=== PATIENT | female | born 1975 | race Caucasian/White ===

== ENCOUNTER 2022-01-05 08:14 | Emergency (ER) | payer OTHER, SELFPAY ==
[2022-01-05 08:20] VITALS: BP 105/60; PULSE 83; RESP 20; TEMP 37; O2SAT 99
--- NOTE | 2022-01-05 08:54 | ED.FEMALEGU ---
HPI - Female Genitourinary General Chief complaint: Urogenital-Female Stated complaint: Urinary Problem Time Seen by Provider: 01/05/22 08:54 Source: patient, RN notes reviewed and old records reviewed Mode of arrival: ambulatory Limitations: no limitations History of Present Illness HPI Narrative: 46-year-old female who presents to [facility] with 3 days symptoms of lower abdominal pressure, lower back pain with some urinary urgency. Patient denies any fevers any nausea vomiting denies any concern for STDs. Patient states she has had a little bit of a white vaginal discharge but denies any itching, Patient does have a history of kidney stones and also urinary tract infection. Patient reports symptoms similar to past episodes of UTI. MD elicited complaint: UTI Pertinent past history: tubal ligation and other (uti) Onset (ago): day(s) (3) Severity scale (1-10): 5 Treatment prior to arrival: NSAIDs Related Data Home Medications Medication Instructions Recorded Confirmed dexlansoprazole 60 mg 60 mg PO DAILY 01/05/22 01/05/22 capsule,biphase delayed release (Dexilant) ezetimibe 10 mg tablet 10 mg PO DAILY 01/05/22 01/05/22 hydrochlorothiazide 25 mg tablet 25 mg PO DAILY 01/05/22 01/05/22 lisinopril 20 mg tablet 20 mg PO DAILY 01/05/22 01/05/22 phentermine 37.5 mg tablet 37.5 mg PO DAILY 01/05/22 01/05/22 plecanatide 3 mg tablet (Trulance) 3 mg PO DAILY 01/05/22 01/05/22 Allergies Allergy/AdvReac Type Severity Reaction Status Date / Time No Known Allergies Allergy Unknown Verified 01/05/22 08:46 Review of Systems Review of Systems: CONSTITUTIONAL: Denies fever, chills, or sweats. CARDIOVASCULAR: Denies chest pain, palpitations, or edema. RESPIRATORY: Denies cough or dyspnea. GASTROINTESTINAL: Reports suprapubic abdominal pressure,perineal pressure, no nausea, vomiting, or diarrhea. GENITOURINARY: Reports dysuria, urgency. Denies flank pain or hematuria. SKIN: Denies rash or itching. MUSCULOSKELETAL: Reports lower back pain or myalgia. Denies CVA tenderness NEUROLOGIC: Denies headache All systems reviewed & are unremarkable except as noted in HPI and below PMFSH Past Medical History Medical History (Updated 01/11/22 @ 10:04 by Linda Bernstein NP) Elevated cholesterol GERD (gastroesophageal reflux disease) Hypertension Kidney stone UTI (urinary tract infection) Surgical History Surgical History (Updated 01/11/22 @ 10:09 by Linda Bernstein NP) H/O ovarian cystectomy H/O tubal ligation History of appendectomy History of endometrial ablation History of surgery on arm ORIF fracture as child Social History Social History (Updated 01/11/22 @ 10:09 by Linda Bernstein NP) Smoking status: Never smoker Alcohol intake: current Alcohol use details: social Living arrangements: with family Gender identity (if verbalized by the patient): Female Comments At time of signature, agree with nursing past medical, surgical, social and family history. There is no relevant family history pertinent to the presenting complaint Exam Narrative: GENERAL: Well-appearing, well-nourished, and in no acute distress. HEAD: Normocephalic, atraumatic. NECK: Supple.no lymphadenopathy CHEST: Clear to auscultation. No respiratory distress. SaO2 99 room air HEART: Regular rate and rhythm. No murmur heard. Normal peripheral pulses. ABDOMEN: Soft, nontender to palpation, nondistended, normal active bowel sounds. No CVA tenderness reports perineal pressure and lower back pain EXTREMITIES: Normal range of motion. No edema. SKIN: Warm, dry, no rash. NEURO: No focal deficits. Alert and oriented x3. Course Course Emergency Course: Patient is aware of diagnosis, understands and agrees to treatment plan.? Anticipatory guidance given.? Patient agrees to follow-up as directed and is aware of reasons to seek care at the emergency department. Portions of this record may have been created with voice recognition soft
== END 2022-01-05 09:10 | disposition home or self-care (01) ==
PROVIDERS: Emergency Provider Registered Nurse; PCP Physician Assistant
DX: N39.0 Urinary tract infection, site not specified (principal); E78.00 Pure hypercholesterolemia, unspecified; I10 Essential (primary) hypertension; K21.9 Gastro-esophageal reflux disease without esophagitis; Z86.16 Personal history of COVID-19
CPT/HCPCS: 81003; 87086; 87088; 99203; G0463

== ENCOUNTER 2022-02-09 08:28 | Emergency (ER) | payer OTHER, SELFPAY ==
--- NOTE | 2022-02-09 08:33 | ED.URI ---
HPI - URI/Sore Throat General Chief Complaint: Upper Respiratory Infection Stated Complaint: sore throat cough ears Time Seen by Provider: 02/09/22 08:33 Source: patient and RN notes reviewed History of Present Illness HPI Narrative: patient is a 46-year-old female who presents to urgent care with complaints of sore throat, cough, bilateral ear pain. Patient states that it started on and she has had exposure to influenza and possibly strep. 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 Patient has been using NyQuil and Robitussin. Denies any known fevers, nausea or vomiting. No other acute complaints. No acute distress noted. Patient aware of the plan of care. Some parts of this dictation were generated by voice recognition software and may contain typographical and/or grammatical inaccuracies. Related Data Home Medications Medication Instructions Recorded Confirmed dexlansoprazole 60 mg 60 mg PO DAILY 01/05/22 01/05/22 capsule,biphase delayed release (Dexilant) ezetimibe 10 mg tablet 10 mg PO DAILY 01/05/22 01/05/22 hydrochlorothiazide 25 mg tablet 25 mg PO DAILY 01/05/22 01/05/22 lisinopril 20 mg tablet 20 mg PO DAILY 01/05/22 01/05/22 phentermine 37.5 mg tablet 37.5 mg PO DAILY 01/05/22 01/05/22 plecanatide 3 mg tablet (Trulance) 3 mg PO DAILY 01/05/22 01/05/22 Allergies Allergy/AdvReac Type Severity Reaction Status Date / Time No Known Allergies Allergy Unknown Verified 02/09/22 08:42 Review of Systems Review of Systems: CONSTITUTIONAL: Denies fever, chills, or sweats. EYES: Denies visual changes, redness, or discharge. ENT: Denies rhinorrhea, congestion, sore throat, or otalgia. CARDIOVASCULAR: Denies chest pain, palpitations, or edema. RESPIRATORY: Denies cough or dyspnea. GASTROINTESTINAL: Denies abdominal pain, nausea, vomiting, or diarrhea. GENITOURINARY: Denies dysuria or hematuria. SKIN: Denies rash or itching. MUSCULOSKELETAL: Denies back pain, joint pain, or myalgia. NEUROLOGIC: Denies headache, numbness, or weakness. PSYCHIATRIC: Denies anxiety or depression. All other systems reviewed are negative, except as documented in HPI. [facility] Past Medical History Medical History (Updated 02/09/22 @ 08:59 by VALENTIN Amado) Elevated cholesterol GERD (gastroesophageal reflux disease) Hypertension Kidney stone UTI (urinary tract infection) Surgical History Surgical History (Updated 01/11/22 @ 10:09 by Linda Bernstein NP) H/O ovarian cystectomy H/O tubal ligation History of appendectomy History of endometrial ablation History of surgery on arm ORIF fracture as child Social History Social History (Updated 01/11/22 @ 10:09 by Linda Bernstein NP) Smoking status: Never smoker Alcohol intake: current Alcohol use details: social Gender identity (if verbalized by the patient): Female Comments At the time of my signature, I reviewed and agree with the nursing past medical, surgical, social, and family history. There is no relevant family history pertinent to the patient complaint. Exam Narrative: GENERAL: This is a well-nourished, well-developed patient, appears fatigued HEAD: normocephalic, atraumatic. EYES: PERRL. Sclera clear/white. Vision is grossly intact. EARS: External ears normal, auditory canals clear and without drainage, TMs normal without perforation. Hearing grossly intact. NOSE: External nose normal with no obvious nasal discharge, nares without redness, clear rhinorrhea. THROAT: Mucous membranes moist, posterior pharynx clear. moderate postnasal drainage NECK: Neck supple, non-tender without lymphadenopathy CARDIOVASCULAR: Regular rate and rhythm without murmurs, gallops, or rubs. RESPIRATORY: Clear to auscultation. Breath sounds equal bilaterally. No wheezes, rales, or rhonchi. SKIN: warm, intact with no suspicious lesions or rash, good texture and turgor. NEURO: awake, alert, and oriented to person, plac
[2022-02-09 08:34] VITALS: BP 100/64; PULSE 97; RESP 16; TEMP 36.8; O2SAT 100
== END 2022-02-09 09:08 | disposition home or self-care (01) ==
PROVIDERS: Emergency Provider Nurse Practitioner Family; PCP Physician Assistant
DX: B34.9 Viral infection, unspecified (principal); J02.9 Acute pharyngitis, unspecified; E78.00 Pure hypercholesterolemia, unspecified; K21.9 Gastro-esophageal reflux disease without esophagitis; I10 Essential (primary) hypertension
CPT/HCPCS: 87081; 87804; 99213; G0463

== ENCOUNTER → 2022-05-10 15:48 | Outpatient (CLI) | payer OTHER, SELFPAY ==
--- NOTE | ~2022-05-10 | US_ITS ---
EXAMINATION: US transvaginal DATE: 05/10/2022 16:12 INDICATION: Pelvic and perineal pain TECHNIQUE: Multiple endovaginal sonographic images of the pelvis were obtained. COMPARISON: None. FINDINGS: The uterus measures 6.5 x 3.4 x 4.3 cm. The endometrial complex measures 4 mm. The right ov zeina measures 3 x 2.1 x 2.9 cm. The left ovary measures 2 x 1.3 x 1.9 cm. There is normal vascular alma w in the ovaries. There is no free fluid in the pelvis. IMPRESSION: 1. No sonographic correlate for the patient's symptoms. Reviewed, dictated and finalized at location F. 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
== END ==
PROVIDERS: PCP Physician Assistant; Visit Provider Nurse Practitioner
DX: R10.2 Pelvic and perineal pain (principal)
CPT/HCPCS: 76830

== ENCOUNTER 2025-01-07 09:53 | Outpatient (CLI) | payer OTHER, SELFPAY ==
--- NOTE | ~2025-01-07 | US_ITS ---
EXAMINATION: US pelvic complete, 01/07/2025 10:12 CDT HISTORY: PELVIC PAIN Comparison: None Technique: Siu-scale and color Doppler images were obtained. Findings: Uterus: Uterus anteverted 6.5 x 3.1 x 3.5 cm. . Endometrium 4 mm. Right Ovary:Right ovary 1.8 x 1.5 x 1.9 cm, no adnexal mass, normal flow. Left Ovary: Left ovary 2.4 x 1.4 x 2.4 cm, no adnexal mass, normal flow Free Fluid: None Impression: No acute abnormality. Reviewed, dictated and finalized at location P. Impression: No acute abnormality.
== END 2025-01-07 09:54 | disposition home or self-care (01) ==
PROVIDERS: PCP Physician Assistant; Visit Provider Obstetrics & Gynecology Gynecology
DX: R10.23 Pelvic and perineal pain bilateral (principal)
CPT/HCPCS: 76856

== ENCOUNTER 2025-02-16 08:39 | Outpatient (CLI) | payer OTHER, SELFPAY ==
--- NOTE | ~2025-02-16 | MM_ITS ---
EXAMINATION: MM diagnostic britta BI w jenae HISTORY: Diffuse left breast pain. TECHNIQUE: Craniocaudal and mediolateral oblique 3-D tomosynthesis images were obtained and synthetic 2-D images were generated. CAD analysis was submitted and interpreted. COMPARISON: April 24. Older study from 2022. BREAST PARENCHYMAL COMPOSITION: Dense: The breasts are heterogeneously dense FINDINGS: No suspicious masses are seen. There are no suspicious calcifications. No unexplained architectural distortion is seen. There are no skin or nipple abnormalities identified. There is no adenopathy seen on the images submitted. IMPRESSION: No mammographic evidence to suggest malignancy is seen. The patient may return to screening mammography as per ACR guidelines. BI-RADS 1 - Negative. Reviewed, dictated and finalized at location C. 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
== END 2025-02-16 08:40 | disposition home or self-care (01) ==
LOC: MICIMG 08:40
PROVIDERS: PCP Physician Assistant
DX: N64.4 Mastodynia (principal)
CPT/HCPCS: 77062; 77066; G0279